=== PATIENT | female | born 1960 | race African-American/Black ===

== ENCOUNTER 2017-03-03 15:28 | Inpatient (IN) ==
[2017-03-03] MEDS ORDERED: LOVENOX 1 MG/KG SUBQ ONE (16:25)
[2017-03-03] MEDS ORDERED: LOVENOX ONE (16:58)
[2017-03-03 17:18] LABS: MANUAL DIFF NEEDED? NO
[2017-03-03 17:33] LABS: BASO% 0.3 % (0.0-0.8); EOS# 0.33 X1000 (0.0-0.7); EOS% 4.7 % (0.0-10.0); HEMATOCRIT 34.4 % (37.0-47.0); HEMOGLOBIN 10.9 g/dL (12.0-16.0); IMM GRAN# 0.01 X1000 (0.0-0.04); IMM GRAN% 0.1 % (0.0-0.5); LYMPH# 2.17 X1000 (1.2-3.4); MCH 29.1 PG (27-31); MCHC 31.7 g/dL (33-37); MCV 91.7 FL (81-99); MONO# 0.61 X1000 (0.11-0.59); MONO% 8.7 % (1.7-9.3); MPV 9.5 FL (7.4-10.4); NEUT% 55.2 % (42.2-75.2); PLT 184 X1000 (130-400); RBC 3.75 XMIL (4.2-5.4)
[2017-03-03 17:41] LABS: AGAP 10; ALBUMIN 4.2 g/dL (3.5-5.0); ALKALINE PHOSPHATASE 59 U/L (32-104); BUN 13 mg/dL (8-22); CALCIUM 9.8 mg/dL (8.8-10.2); CHLORIDE 102 mmol/L (98-107); COSMO 278; GOT 20 U/L (10-30); GPT 18 U/L (10-36); SODIUM 137 mmol/L (136-145); TCO2 25 mmol/L (25-35); TOTAL PROTEIN 7.4 g/dL (6.3-8.3)
[2017-03-03] MEDS ORDERED: ZOFRAN IV PRN (19:42)
[2017-03-03] MEDS ORDERED: LOVENOX 1 MG/KG SUBQ SCH (19:42)
[2017-03-03] MEDS: PRAVACHOL PO SCH (20:11)
[2017-03-04] MEDS ORDERED: TYLENOL PO PRN (04:31)
[2017-03-04] MEDS: LOVENOX SUBQ SCH ×2 (04:37→16:38)
[2017-03-04 06:08] LABS: HEMATOCRIT 33.2 % (37.0-47.0); HEMOGLOBIN 10.4 g/dL (12.0-16.0); MCHC 31.3 g/dL (33-37); MCV 92.5 FL (81-99); MPV 9.9 FL (7.4-10.4); RBC 3.59 XMIL (4.2-5.4)
[2017-03-04] MEDS: PRILOSEC PO SCH (06:08)
[2017-03-04 06:28] LABS: AGAP 10; BUN 12 mg/dL (8-22); CALCIUM 9.8 mg/dL (8.8-10.2); CHLORIDE 105 mmol/L (98-107); COSMO 282; POTASSIUM 4.1 mmol/L (3.5-5.1); SODIUM 138 mmol/L (136-145); TCO2 23 mmol/L (25-35)
[2017-03-04] MEDS: COZAAR PO SCH (08:57)
[2017-03-04] MEDS: HYDROCHLOROTHIAZIDE PO SCH (08:57)
[2017-03-04] MEDS: HUMALOG DOSE (PARKWAY) SUBQ SCH ×3 (11:33→20:50)
[2017-03-04] MEDS: PRAVACHOL PO SCH (20:50)
[2017-03-05] MEDS: PRILOSEC PO SCH (06:15)
[2017-03-05] MEDS: HUMALOG DOSE (PARKWAY) SUBQ SCH ×5 (06:16→22:06)
[2017-03-05] MEDS: LOVENOX SUBQ SCH ×2 (06:16→17:07)
[2017-03-05] MEDS: COZAAR PO SCH (08:13)
[2017-03-05] MEDS: HYDROCHLOROTHIAZIDE PO SCH (08:13)
[2017-03-05 13:48] LABS: INR 0.99 (0.86-1.15); PROTIME 13.9 Seconds (12.1-15.5)
[2017-03-05] MEDS ORDERED: COUMADIN PO ONE (14:00)
[2017-03-05] MEDS: COUMADIN PO SCH (22:06)
[2017-03-05] MEDS: PRAVACHOL PO SCH (22:06)
[2017-03-06] MEDS: LOVENOX SUBQ SCH ×2 (06:32→17:28)
[2017-03-06] MEDS: HUMALOG DOSE (PARKWAY) SUBQ SCH ×4 (06:32→22:24)
[2017-03-06] MEDS: PRILOSEC PO SCH (06:32)
[2017-03-06 06:50] LABS: INR 0.96 (0.86-1.15); PROTIME 13.6 Seconds (12.1-15.5)
[2017-03-06] MEDS: COZAAR PO SCH (08:00)
[2017-03-06] MEDS: HYDROCHLOROTHIAZIDE PO SCH (08:00)
[2017-03-06] MEDS ORDERED: COUMADIN PO ONE (09:09)
[2017-03-06] MEDS: COUMADIN PO SCH (22:25)
[2017-03-06] MEDS: PRAVACHOL PO SCH (22:25)
[2017-03-07] MEDS: PRILOSEC PO SCH (06:17)
[2017-03-07] MEDS: LOVENOX SUBQ SCH ×2 (06:17→16:48)
[2017-03-07] MEDS: HUMALOG DOSE (PARKWAY) SUBQ SCH ×4 (06:17→21:01)
[2017-03-07 08:06] LABS: INR 1.48 (0.86-1.15); PROTIME 19.1 Seconds (12.1-15.5)
[2017-03-07] MEDS: COZAAR PO SCH (09:08)
[2017-03-07] MEDS: HYDROCHLOROTHIAZIDE PO SCH (09:08)
[2017-03-07] MEDS: PRAVACHOL PO SCH (21:01)
[2017-03-07] MEDS: COUMADIN PO SCH (21:01)
[2017-03-08] MEDS: LOVENOX SUBQ SCH (04:48)
[2017-03-08 06:05] LABS: INR 2.02 (0.86-1.15); PROTIME 24.5 Seconds (12.1-15.5)
[2017-03-08] MEDS: PRILOSEC PO SCH (06:18)
[2017-03-08] MEDS: HUMALOG DOSE (PARKWAY) SUBQ SCH ×2 (06:20→10:56)
[2017-03-08] MEDS: COZAAR PO SCH (08:50)
[2017-03-08] MEDS: HYDROCHLOROTHIAZIDE PO SCH (08:50)
[2017-03-08] MEDS ORDERED: COUMADIN PO SCH (13:42)
[2017-03-08 14:57] VITALS: BP 138/65
== END 2017-03-08 15:56 | disposition home or self-care (01) ==
LOC: P.ED 15:28 → P.MEDSURG 19:29 → SUATTDRO 19:29
PROVIDERS: ATTEND Internal Medicine